=== PATIENT | female | born 1990 | race Caucasian/White ===

== ENCOUNTER 2022-10-24 11:37 | Inpatient (IN) ==
[2022-10-24] MEDS ORDERED: Buffered Lidocaine 1% SYRIN 1 ml ONE (12:35)
[2022-10-24] MEDS ORDERED: Buffered Lidocaine 1% SYRIN 1 ml INTRADERM ONE (12:40)
[2022-10-24] MEDS ORDERED: Promethazine INJ(RESTRICTED) 25 MG/ML 1 ml VIAL IV PRN (12:40)
[2022-10-24] MEDS ORDERED: Lactated Ringers 1000 ml BAG 1,000 ML IV ONE (12:40)
[2022-10-24] MEDS ORDERED: Oxytocin in LR 20,000 MILLI.UNIT/1,000 ML BAG IV SCH (12:45)
[2022-10-24] MEDS ORDERED: Lactated Ringers 1000 ml BAG 1,000 ML IV SCH (13:00)
[2022-10-24 14:46] LABS: ABS Eosinophils 0.1 10^3/uL (0.0-0.5); ABS Monocytes 0.7 10^3/uL (0.0-0.9); ABS Neutrophils 10.6 10^3/uL (1.5-7.6); ABS Nucleated RBC 0.01 10^3/ul; Eosinophil % 0.8 %; Hematocrit 30.9 % (35-45); Hemoglobin 10.3 g/dL (11.5-14.3); Lymphocyte % 14.8 %; Mean Corpuscular Hemoglobin 26.1 pg (27-33); Mean Corpuscular Hgb Conc 33.5 g/dL (31-36); Mean Corpuscular Volume 77.8 fL (80-97); Mean Platelet Volume 8.8 fL (7.5-11.2); Platelet Count 246 10^3/uL (150-450); Red Blood Count 3.96 10^6/uL (3.63-4.92); White Blood Count 13.3 10^3/uL (3.8-11.8)
[2022-10-24 14:59] LABS: Albumin 3.3 g/dL (3.2-5.2); Calcium 8.5 mg/dL (8.6-10.3); Total Bilirubin 0.4 mg/dL (0.2-1.0)
[2022-10-24 15:05] LABS: Albumin/Globulin Ratio 1.4 (1-3); Creatinine, Serum 0.66 mg/dL (0.51-0.95); Globulin 2.4 g/dL (2-4); Total Protein 5.7 g/dL (6.4-8.9); eGFR CKD-EPI 119.5 (>60)
[2022-10-24 15:45] LABS: Urine Benzodiazepine Screen None Detected (None Detect); Urine Cannabinoids Screen None Detected (None Detect); Urine Opiates Screen None Detected (None Detect)
[2022-10-24] MEDS ORDERED: OBEPIDURAL (200 ML) 200 ML EPIDURAL ONE (19:57)
[2022-10-24] MEDS ORDERED: Lidocaine 1.5% EPI 1:200,000 30 ML SDV ONE (19:57)
[2022-10-24] MEDS ORDERED: fentaNYL 100 mcg/2 ml 50 MCG/ML VIAL ONE (20:11)
[2022-10-24] MEDS ORDERED: Bupivacaine 0.25% SDV PF 10 ML VIAL INJ ONE (20:15)
[2022-10-24 22:18] LABS: Urine Appearance Clear; Urine Bilirubin Negative (Negative); Urine Blood Negative (Negative); Urine Color Yellow; Urine Glucose Negative (Negative); Urine Ketones 1+ (Negative); Urine Nitrite Negative (Negative); Urine Protein Negative (Negative); Urine Urobilinogen Negative (Negative)
[2022-10-24] MEDS ORDERED: Tranexamic Acid 1 GM/100ML BAG 0 MG/0 ML BAG IV ONE (23:08)
[2022-10-25] MEDS ORDERED: Dibucaine 1% OINT 28.35 GM TUBE PR PRN (01:02)
[2022-10-25] MEDS ORDERED: Glycerin ADULT 2.4 gm SUPP PR PRN (01:02)
[2022-10-25] MEDS ORDERED: Witch Hazel PAD JAR TOPICAL PRN (01:02)
[2022-10-25] MEDS ORDERED: Oxytocin in LR 20,000 MILLI.UNIT/1,000 ML BAG IV SCH (01:15)
[2022-10-25] MEDS ORDERED: Lactated Ringers 1000 ml BAG 1,000 ML IV SCH ×2 (02:00→07:00)
[2022-10-25] MEDS ORDERED: Lidocaine 1% VIAL 10 MG/ML VIAL 30 ML ONE (02:59)
[2022-10-25 06:23] LABS: ABS Basophils 0.1 10^3/uL (0.0-0.1); ABS Monocytes 1.2 10^3/uL (0.0-0.9); ABS Neutrophils 16.6 10^3/uL (1.5-7.6); Eosinophil % 0.1 %; Hematocrit 26.6 % (35-45); Lymphocyte % 9.8 %; Mean Corpuscular Hemoglobin 26.8 pg (27-33); Mean Corpuscular Volume 78.8 fL (80-97); Mean Platelet Volume 8.6 fL (7.5-11.2); Platelet Count 219 10^3/uL (150-450); Red Blood Count 3.37 10^6/uL (3.63-4.92); Red Cell Distribution Width 16.7 % (12-17); White Blood Count 19.8 10^3/uL (3.8-11.8)
[2022-10-25] MEDS ORDERED: Sodium Citrate/Citric Acid LIQ 15 ML UDC PO PRN (06:23)
[2022-10-25] MEDS ORDERED: Phenylephrine 40 mcg/mL 10mL (400mcg) SYRINGE IV PUSH PRN ×2 (06:23)
[2022-10-25] MEDS ORDERED: Lactated Ringers 1000 ml BAG 1,000 ML IV ONE (06:23)
[2022-10-25] MEDS ORDERED: OBEPIDURAL (200 ML) 200 ML EPIDURAL SCH (07:00)
[2022-10-26 08:01] VITALS: BP 141/73
== END 2022-10-26 12:25 | disposition home or self-care (01) | DRG 560 ==
LOC: MCHOBOUT 11:37 → MCHOB 12:36
PROVIDERS: ADMIT Obstetrics & Gynecology; ATTEND Obstetrics & Gynecology